=== PATIENT | female | born 1940 | race Two or more races ===

== ENCOUNTER 2025-04-13 12:58 | Emergency (ER) | payer OTHER ==
[~2025-04-13] VITALS: Ht 327.7 cm; Wt 72.0 kg
--- NOTE | 2025-04-13 13:34 | ED.PDOC ---
HPI Comments 85 y.o female with PMHx of COPD, HTN, hyperlipidemia, breast cancer and gallstones, presents to the ED for a chief complaint of palpitations associated with SOB that started last night. Patient reports SOB worsens on exertion. Daughter reports patient is on 4 liters of oxygen at home and noticed no relief. Patient recently moved from [place] to [place] 2 weeks ago to live with daughter. Patient denies any chest pain, fever, chills, leg swelling, back pain nausea or vomiting. Patient denies substance, alcohol or tobacco use. Chief Complaint: Palpitations Time Seen by MD: 13:11 Primary Care Provider: RAUL Reviewed Notes: Nurses Notes, Medications, Allergies Allergies: Coded Allergies: NO KNOWN ALLERGIES (Unverified , 04/13/25) Information Source: Patient, Relative (daughter ) Mode of Arrival: Wheelchair Severity: Moderate Timing: Hours Duration: Since onset Onset: At Rest Cardiac Risk Factors: Family History, Hyperlipidemia, HTN PE Risk Factors: None History of: None Modifying Factors: Nothing Associated Signs and Symptoms: SOB, Palpitations Past Medical History PAST MEDICAL HISTORY: Cancer (breast ), COPD, Gallstones, High Lipids, HTN Surgical History: CABG Surgical History (Other): right sided lumpectomy BIOCHEMICAL DEVELOPMENT ENGINEER History: No Pertinent BIOCHEMICAL DEVELOPMENT ENGINEER History Family History Family History: Family hx of heart sofia Social History Smoker: Non-Smoker Alcohol: Denies ETOH Use Drugs: Denies Drug Use Lives In: Home Constitutional: denies: chills, diaphoresis, fatigue, fever, malaise, sweats, weakness, others EENTM: denies: blurred vision, double vision, ear bleeding, ear discharge, ear drainage, ear pain, ear ringing, eye pain, eye redness, hearing loss, mouth pain, mouth swelling, nasal discharge, nose bleeding, nose congestion, nose pain, photophobia, tearing, throat pain, throat swelling, voice changes, others Respiratory: reports: SOB at rest, shortness of breath, SOB with excertion; denies: cough, hemoptysis, orthopnea, stridor, wheezing, others Cardiovascular: reports: palpitations; denies: chest pain, dizzy spells, diaphoresis, Dyspnea on exertion, edema, irregular heart beat, left arm pain, lightheadedness, PND, syncope, others Gastrointestinal: denies: abdomen distended, abdominal pain, blood streaked bowels, constipated, diarrhea, dysphagia, difficulty swallowing, hematemesis, melena, nausea, poor appetite, poor fluid intake, rectal bleeding, rectal pain, vomiting, others Genitourinary: denies: abnormal vagina bleeding, burning, dyspareunia, dysuria, flank pain, frequency, hematuria, incontinence, pain, , vagina discharge, urgency, others Neurological: denies: dizziness, fainting, headache, left sided numbness, left sided weakness, numbness, paresthesia, pre-existing deficit, right sided numb ness, right sided weakness, seizure, speech problems, tingling, tremors, weakness, others Musculoskeletal: denies: back pain, gout, joint pain, joint swelling, muscle pain, muscle stiffness, neck pain, others Integumetry: denies: bruises, change in color, change in hair/nails, dryness, laceration, lesions, lumps, rash, wounds, others Allergic/Immunocompromised: denies: Difficulty Healing, Frequent Infections, Hives, Itching, others Hematologic/Lymphatic: denies: anemia, blood clots, easy bleeding, easy bruising, swollen glands, others Endocrine: denies: excessive hunger, excessive sweating, excessive thirst, excessive urination, flushing, intolerance to cold, intolerance to heat, unexplained weight gain, unexplained weight loss, others Psychiatric: denies: anxiety, bipolar disorder, depression, hopeless, panic disorder, schizophrenia, sleepless, suicidal, others All Other Systems: Reviewed and Negative Physical Exam General Appearance: Moderate Distress HEENT: Normal ENT Inspection, Pharynx Normal, TMs Normal Neck: Full Range of Motion, Non-Tender, Normal, Normal Inspection Respiratory: Chest Non-Tender, Decreased Breath Sounds, No Accessory Muscle Use, Respiratory Distress, Wheezing Cardiovascular: Irregular, No Edema, No JVD, No Murmur, No Gallop Breast Exam: Deferred Gastrointestinal: No Organomegaly, Non Tender, No Pulsatile Mass, Normal Bowel Sounds, Soft Genitalia: Deferred Pelvic: Deferred Rectal: Deferred Extremities: No calf tenderness, Normal capillary refill, No pedal edema Musculoskeletal : Apperance: Normal Neurologic: Alert, airline mechanic II-XII nml as Tested, Motor Weakness, Normal Affect, Normal Mood, No Sensory Deficits Cerebellar Function: Normal Reflexes: Normal Skin: Dry, Normal Color, Warm Lymphatic: No Adenopathy EKG EKG : Pulse Rate (adult): 103 Cardiac Rhythm: Afib Hypertrophy: RVH Was a procedure done? Was a procedure done?: No CP Differential Dx Differential Diagnosis: A-fib, Electrolyte Disorder Differential Diagnosis: Angina X-Ray, Labs, Meds, VS Vital Signs Date Time Temp Pulse Resp B/P (MAP) Pulse Ox O2 Delivery O2 Flow Rate FiO2 04/13/25 15:39 98.2 79 18 102/47 (65) 100 98.2 04/13/25 14:04 95 04/13/25 13:34 103 04/13/25 13:17 97.1 100 18 101/60 (74) 97 97.1 04/13/25 13:06 103 04/13/25 12:58 97.1 100 18 101/60 (74) 97 97.1 Lab Test 04/13/25 14:07 04/13/25 13:10 Range/Units Troponin I High Sensitivity 5 4 </=34 ng/L White Blood Count 3.8 L 4.4-10.8 10^3/uL Red Blood Count 2.67 L 4.0-5.20 10^6/uL Hemoglobin 8.2 L 12.2-16.2 g/dL Hematocrit 24.8 L 36.0-46.0 % Mean Corpuscular Volume 92.7 80.0-100.0 fL Mean Corpuscular Hemoglobin 30.7 28.0-32.0 pg Mean Corpuscular Hemoglobin Concent 33.1 32.0-36.0 g/dL Red Cell Distribution Width 13.8 11.8-14.3 % Platelet Count 160 140-450 10^3/uL Mean Platelet Volume 8.1 6.9-10.8 fL Neutrophils (%) (Auto) 63.0 37.0-80.0 % Lymphocytes (%) (Auto) 19.2 10.0-50.0 % Monocytes (%) (Auto) 13.6 H 0.0-12.0 % Eosinophils (%) (Auto) 3.8 0.0-7.0 % Basophils (%) (Auto) 0.4 0.0-2.0 % Neutrophils # (Auto) 2.4 1.6-8.6 10 ^3/uL Lymphocytes # (Auto) 0.7 0.4-5.4 10 ^3/uL Monocytes # (Auto) 0.5 0-1.3 10 ^3/uL Eosinophils # (Auto) 0.1 0-0.8 10 ^3/uL Basophils # (Auto) 0 0-0.2 10 ^3/uL Nucleated Red Blood Cells 0.0 % D-Dimer, Quantitative 0.91 H 0.0-0.49 mg/L FEU Sodium Level 141 136-145 mmol/L Potassium Level 4.4 3.5-5.1 mmol/L Chloride Level 103 98-107 mmol/L Carbon Dioxide Level 32 H 20-31 mmol/L Anion Gap 6 5-15 Blood Urea Nitrogen 24 H 9-23 mg/dL Creatinine 1.02 0.550-1.02 mg/dL Glomerular Filtration Rate Calc 54 >90 mL/min BUN/Creatinine Ratio 23.5 H 10.0-20.0 Serum Glucose 112 H 74-106 mg/dL Calcium Level 10.3 8.7-10.4 mg/dL B-Type Natriuretic Peptide 141.28 0-100 pg/mL Current Medications Medications (Trade) Dose Ordered Sig/Christiano Route Start Time Stop Time Status Last Admin Methylprednisolone Sodium Succinate (Solu Medrol) 125 mg ONCE ONCE IV 04/13/25 13:30 04/13/25 13:31 DC 04/13/25 15:55 IV Hep-Lock was established The patient was immediately given Solu-Medrol 125 mg IV push The CBC shows anemia with a hemoglobin of 8.2 and hematocrit of 24.8. The patient's chemistry panel is within normal limits The D-dimer is 0.91 which is also elevated. The chest x-ray did not show any acute disease as in pneumothorax or infiltrates consistent with pneumonia or CHF We did order a CAT scan of the chest to rule out PE at this time It seems that the patient does not want to stay and would like to leave because she states that she is feeling better She is signing out against medical advice. Images Reviewed?: Images reviewed and evaluated by me Time of 1ST Reevaluation: 13:29 Reevaluation 1ST: Unchanged Patient Education/Counseling: Diagnosis, Treatment, Prognosis Family Education/Counseling: Diagnosis, Treatment, Prognosis Departure 1 Departure Time of Disposition: 16:51 Impression: Primary Impression: COPD (chronic obstructive pulmonary disease) Qualified Codes: J44.1 - Chronic obstructive pulmonary disease with (acute) exacerbation Additional Impression: Atrial fibrillation Qualified Codes: I48.91 - Unspecified atrial fibrillation Disposition: 09 ADMITTED INPATIENT Admit to: Tele Condition: Fair Critical Care Note Critical Care Time?: Yes (45 min-critical care time only) Stability Stability form required: Yes Unstable for transfer: Telemetry monitoring (Telemetry monitoring required), ED Physician Assesment (Clinical assesment) Heart Score Heart Score: Heart Score Response (Comments) Value History Slightly Suspicious 0 EKG Repolarization Disturb 1 Age >65 2 Risk Factors >3 or Hx ASHD 2 Troponin Normal limit 0 Total 5 I personally scribed for MARINA COCHRAN MD ([email or web address]) on 04/13/25 at 13:34. Electronically submitted by Martha Chun ([facility]). MARINA COCHRAN MD April 13, 2025 13:34
[2025-04-13 13:54] LABS: Basophils # (auto) 0 10 ^3/uL (0-0.2); Basophils % (auto) 0.4 % (0.0-2.0); Eosinophils # (auto) 0.1 10 ^3/uL (0-0.8); Eosinophils % (auto) 3.8 % (0.0-7.0); Hematocrit 24.8 % (36.0-46.0); Hemoglobin 8.2 g/dL (12.2-16.2); Lymphocytes # (auto) 0.7 10 ^3/uL (0.4-5.4); Lymphocytes % (auto) 19.2 % (10.0-50.0); Mean Corpuscular Hemoglobin 30.7 pg (28.0-32.0); Mean Corpuscular Hgb Conc. 33.1 g/dL (32.0-36.0); Mean Corpuscular Volume 92.7 fL (80.0-100.0); Monocytes # (auto) 0.5 10 ^3/uL (0-1.3); Monocytes % (auto) 13.6 % (0.0-12.0); Neutrophils # (auto) 2.4 10 ^3/uL (1.6-8.6); Platelet Count (auto) 160 10^3/uL (140-450); Red Blood Cells 2.67 10^6/uL (4.0-5.20); Red Cell Distribution Width 13.8 % (11.8-14.3); White Blood Cell 3.8 10^3/uL (4.4-10.8)
[2025-04-13 14:00] LABS: Chloride 103 mmol/L (98-107); Potassium 4.4 mmol/L (3.5-5.1); Sodium 141 mmol/L (136-145)
--- NOTE | 2025-04-13 14:00 | DVH ---
CHEST RADIOGRAPH Indication: sob Technique: Single frontal view of the chest was obtained COMPARISON: FINDINGS: The cardiac silhouette is severely enlarged. The lungs demonstrate bilateral patchy airspace opacitie s. The pulmonary vasculature is prominent. Moderate right and small left pleural effusions. Aortic a therosclerotic disease. There is no pneumothorax. IMPRESSION: 1. As above
[2025-04-13 14:01] LABS: Anion Gap 6 (5-15)
[2025-04-13 14:02] LABS: Calcium 10.3 mg/dL (8.7-10.4)
--- NOTE | 2025-04-13 14:05 | ECG ---
[facility] Test Date: 2025-04-13 Test Time: 14:04:25 Pat Name: KARLEE LAI Department: ER Room: Gender: F Bias Cutter Helper: MAURICIO : 1940 Requested By: MARINA COCHRAN Order Number: [id number] Reading MD: Sha Solano Measurements Intervals [place] Rate: 95 P: 0 MA: 0 QRS: 152 QRSD: 107 T: 38 QT: 358 QTc: 450 Interpretive Statements Atrial fibrillation Probable right ventricular hypertrophy Baseline wander in lead(s) V2 Electronically Signed On 04-14-2025 12:16:38 PDT by Sha Solano Please click the below link to view image of tracing.
[2025-04-13 14:07] LABS: BUN/Creatinine Ratio 23.5 (10.0-20.0)
[2025-04-13 14:12] LABS: Blood Urea Nitrogen 24 mg/dL (9-23); Carbon Dioxide 32 mmol/L (20-31); Glucose 112 mg/dL (74-106)
[2025-04-13 15:39] VITALS: BP 102/47; PULSE 79; RESP 18; TEMP 98.2; O2SAT 100
[2025-04-13] MEDS: methylPREDNISolone SOD SUCC 125 MG/2 ML VL IV ONE (15:55)
--- NOTE | 2025-04-14 07:25 | ECG ---
[facility] Test Date: 2025-04-13 Test Time: 13:06:32 Pat Name: KARLEE LAI Department: ER Room: Gender: F Coil Winder: GEORGE : 1940 Requested By: MARINA COCHRAN Order Number: [id number] Reading MD: Sha Solano Measurements Intervals [place] Rate: 103 P: 0 SC: 0 QRS: 162 QRSD: 104 T: 45 QT: 351 QTc: 460 Interpretive Statements Atrial fibrillation Right ventricular hypertrophy Electronically Signed On 04-14-2025 12:16:29 PDT by Sha Solano Please click the below link to view image of tracing.
== END 2025-04-13 16:53 | disposition left against medical advice (07) ==
LOC: ER 12:58
DX: J44.9 Chronic obstructive pulmonary disease, unspecified (principal); I48.91 Unspecified atrial fibrillation; I10 Essential (primary) hypertension; E78.5 Hyperlipidemia, unspecified; Z95.1 Presence of aortocoronary bypass graft; Z98.890 Other specified postprocedural states
CPT/HCPCS: 36415; 71045; 80048; 83880; 84484; 85025; 85379; 93005; 96374; 99291; J2919

== ENCOUNTER 2025-04-27 19:34 | Inpatient (IN) | payer OTHER ==
[~2025-04-27] VITALS: Ht 188 cm; Wt 73.3 kg
[2025-04-27 20:05] LABS: Basophils # (auto) 0 10 ^3/uL (0-0.2); Basophils % (auto) 0.5 % (0.0-2.0); Eosinophils # (auto) 0.1 10 ^3/uL (0-0.8); Eosinophils % (auto) 1.9 % (0.0-7.0); Hematocrit 25.1 % (36.0-46.0); Hemoglobin 8.2 g/dL (12.2-16.2); Lymphocytes # (auto) 0.7 10 ^3/uL (0.4-5.4); Lymphocytes % (auto) 13.1 % (10.0-50.0); Mean Corpuscular Hemoglobin 30.6 pg (28.0-32.0); Mean Corpuscular Hgb Conc. 32.5 g/dL (32.0-36.0); Mean Corpuscular Volume 94.1 fL (80.0-100.0); Monocytes # (auto) 0.4 10 ^3/uL (0-1.3); Monocytes % (auto) 8.1 % (0.0-12.0); Neutrophils # (auto) 3.9 10 ^3/uL (1.6-8.6); Neutrophils % (auto) 76.4 % (37.0-80.0); Platelet Count (auto) 139 10^3/uL (140-450); Red Blood Cells 2.67 10^6/uL (4.0-5.20); Red Cell Distribution Width 14.6 % (11.8-14.3); White Blood Cell 5.1 10^3/uL (4.4-10.8)
[2025-04-27 20:18] LABS: Alanine Aminotransferase 21 U/L (7-40); Albumin 4.1 g/dL (3.2-4.8); Alkaline Phosphatase 92 U/L (46-116); Anion Gap 6 (5-15); Aspartate Aminotransferase 23 U/L (13-40); BUN/Creatinine Ratio 17.7 (10.0-20.0); Bilirubin, Total 0.5 mg/dL (0.2-1.0); Blood Urea Nitrogen 20 mg/dL (9-23); Calcium 10.1 mg/dL (8.7-10.4); Carbon Dioxide 30 mmol/L (20-31); Chloride 105 mmol/L (98-107); Potassium 4.7 mmol/L (3.5-5.1); Sodium 141 mmol/L (136-145); Total Protein 6.7 g/dL (5.7-8.2)
[2025-04-27 20:21] LABS: Glucose 220 mg/dL (74-106)
--- NOTE | 2025-04-27 20:25 | ED.PDOC ---
History of Present Illness HPI Comments Patient isn't 85-year-old female in poor overall health who was brought to the facility today via EMS due to abnormal lab concerns. Patient's [facility] is [facility] and [facility] hemoglobin levels were discovered. Patient was sent to our facility for a direct admission. Provider Leonardo Kolb will manage that inpatient care. Chief Complaint: Abnormal LAB's Time Seen by MD: 19:36 Primary Care Provider: RAUL Reviewed Notes: Nurses Notes, Clinical Services Assistant Notes Allergies: Coded Allergies: NO KNOWN ALLERGIES (Unverified , 04/13/25) Information Source: Patient, Emergency Med Personnel Mode of Arrival: EMS Severity: Moderate Timing: Minutes Duration: Since onset Prehospital treatment: 12 Lead EKG Past Medical History PAST MEDICAL HISTORY: Cancer, COPD, Gallstones, High Lipids, HTN Surgical History: CABG AUTOMOBILE LIGHTS ASSEMBLER History: No Pertinent AUTOMOBILE LIGHTS ASSEMBLER History Family History Family History: Family hx of heart sofia Social History Smoker: Non-Smoker Alcohol: Denies ETOH Use Drugs: Denies Drug Use Lives In: Home Constitutional: reports: fatigue; denies: chills, diaphoresis, fever, malaise, sweats, weakness, others EENTM: denies: blurred vision, double vision, ear bleeding, ear discharge, ear drainage, ear pain, ear ringing, eye pain, eye redness, hearing loss, mouth pain, mouth swelling, nasal discharge, nose bleeding, nose congestion, nose pain, photophobia, tearing, throat pain, throat swelling, voice changes, others Respiratory: denies: cough, hemoptysis, orthopnea, SOB at rest, shortness of breath, SOB with excertion, stridor, wheezing, others Cardiovascular: denies: chest pain, dizzy spells, diaphoresis, Dyspnea on exertion, edema, irregular heart beat, left arm pain, lightheadedness, palpitations, PND, syncope, others Gastrointestinal: reports: nausea; denies: abdomen distended, abdominal pain, blood streaked bowels, constipated, diarrhea, dysphagia, difficulty swallowing, hematemesis, melena, poor appetite, poor fluid intake, rectal bleeding, rectal pain, vomiting, others Genitourinary: denies: abnormal vagina bleeding, burning, dyspareunia, dysuria, flank pain, frequency, hematuria, incontinence, pain, , vagina discharge, urgency, others Neurological: denies: dizziness, fainting, headache, left sided numbness, left sided weakness, numbness, paresthesia, pre-existing deficit, right sided n umbness, right sided weakness, seizure, speech problems, tingling, tremors, weakness, others Musculoskeletal: denies: back pain, gout, joint pain, joint swelling, muscle pain, muscle stiffness, neck pain, others Integumetry: denies: bruises, change in color, change in hair/nails, dryness, laceration, lesions, lumps, rash, wounds, others Allergic/Immunocompromised: denies: Difficulty Healing, Frequent Infections, Hives, Itching, others Hematologic/Lymphatic: denies: anemia, blood clots, easy bleeding, easy bruising, swollen glands, others Endocrine: denies: excessive hunger, excessive sweating, excessive thirst, excessive urination, flushing, intolerance to cold, intolerance to heat, unexplained weight gain, unexplained weight loss, others Psychiatric: denies: anxiety, bipolar disorder, depression, hopeless, panic disorder, schizophrenia, sleepless, suicidal, others Physical Exam Exam Comments Patient is in poor overall health. General Appearance: Moderate Distress (Patient was in [id number] discomfort due to some nausea and generalized belly pain concerns.), Normal HEENT: Normal ENT Inspection, Pharynx Normal, TMs Normal Neck: Full Range of Motion, Non-Tender, Normal, Normal Inspection Respiratory: Chest Non-Tender, Lungs Clear, No Accessory Muscle Use, No Respiratory Distress, Normal Breath Sounds Cardiovascular: No Edema, No JVD, No Murmur, No Gallop, Normal Peripheral Pulses, Regular Rate/Rhythm Breast Exam: Deferred Gastrointestinal: No Organomegaly, Non Tender, No Pulsatile Mass, Normal Bowel Sounds, Soft Genitalia: Deferred Pelvic: Deferred Rectal: Deferred Extremities: No calf tenderness, Normal capillary refill, No pedal edema Neurologic: Alert Cerebellar Function: NOT DONE Reflexes: NOT DONE Skin: Dry, Normal Color, Warm Lymphatic: No Adenopathy Was a procedure done? Was a procedure done?: No Differential Dx Considerations may include: Sepsis, electrolyte abnormality, anemia, GI bleed X-Ray, Labs, Meds, VS Vital Signs Date Time Temp Pulse Resp B/P (MAP) Pulse Ox O2 Delivery O2 Flow Rate FiO2 04/27/25 19:46 98.3 65 18 110/62 (78) 96 98.3 Lab Test 04/27/25 19:49 Range/Units White Blood Count 5.1 4.4-10.8 10^3/uL Red Blood Count 2.67 L 4.0-5.20 10^6/uL Hemoglobin 8.2 L 12.2-16.2 g/dL Hematocrit 25.1 L 36.0-46.0 % Mean Corpuscular Volume 94.1 80.0-100.0 fL Mean Corpuscular Hemoglobin 30.6 28.0-32.0 pg Mean Corpuscular Hemoglobin Concent 32.5 32.0-36.0 g/dL Red Cell Distribution Width 14.6 H 11.8-14.3 % Platelet Count 139 L 140-450 10^3/uL Mean Platelet Volume 7.9 6.9-10.8 fL Neutrophils (%) (Auto) 76.4 37.0-80.0 % Lymphocytes (%) (Auto) 13.1 10.0-50.0 % Monocytes (%) (Auto) 8.1 0.0-12.0 % Eosinophils (%) (Auto) 1.9 0.0-7.0 % Basophils (%) (Auto) 0.5 0.0-2.0 % Neutrophils # (Auto) 3.9 1.6-8.6 10 ^3/uL Lymphocytes # (Auto) 0.7 0.4-5.4 10 ^3/uL Monocytes # (Auto) 0.4 0-1.3 10 ^3/uL Eosinophils # (Auto) 0.1 0-0.8 10 ^3/uL Basophils # (Auto) 0 0-0.2 10 ^3/uL Nucleated Red Blood Cells 0.0 % Sodium Level 141 136-145 mmol/L Potassium Level 4.7 3.5-5.1 mmol/L Chloride Level 105 98-107 mmol/L Carbon Dioxide Level 30 20-31 mmol/L Anion Gap 6 5-15 Blood Urea Nitrogen 20 9-23 mg/dL Creatinine 1.13 H 0.550-1.02 mg/dL Glomerular Filtration Rate Calc 47 >90 mL/min BUN/Creatinine Ratio 17.7 10.0-20.0 Serum Glucose 220 H 74-106 mg/dL Lactic Acid Level 1.3 0.4-2.0 mmol/L Calcium Level 10.1 8.7-10.4 mg/dL Total Bilirubin 0.5 0.2-1.0 mg/dL Aspartate Amino Transferase (AST) 23 13-40 U/L Alanine Aminotransferase (ALT) 21 7-40 U/L Alkaline Phosphatase 92 46-116 U/L Troponin I High Sensitivity Pending B-Type Natriuretic Peptide 178.62 0-100 pg/mL Total Protein 6.7 5.7-8.2 g/dL Albumin 4.1 3.2-4.8 g/dL Lipase Pending X-Ray, Labs, Meds, VS Comment All studies performed in the ED were evaluated by me personally. Some studies were pending at time of this note. CBC was unremarkable for any critical anemic concerns and need to be addressed at this moment. Provider Leonardo Kolb will manage the patient's moving forward. Time of 1ST Reevaluation: 20:32 Reevaluation 1ST: Unchanged Consultation: PCP Patient Education/Counseling: Diagnosis, Treatment Family Education/Counseling: Diagnosis, Treatment Sepsis Sepsis Reasesment Focused Exam Orders: Laboratory Tests 04/27/25 19:49: Lactic Acid Level 1.3 Departure 1 Departure Time of Disposition: 20:33 Impression: Primary Impression: Anemia Additional Impression: Afib Disposition: ADMITTED INPATIENT Condition: Fair Discharged With: Self Critical Care Note Critical Care Time?: No Stability Stability form required: No Heart Score Heart Score: Heart Score Response (Comments) Value History Slightly Suspicious 0 EKG Repolarization Disturb 1 Age >65 2 Risk Factors 1 or 2 risk factors 1 Troponin N/A 0 Total 4 TIMOTHY LILLY PAC Apr 27, 2025 20:25
[2025-04-27 20:31] LABS: Lipase 33 U/L (12-53)
[2025-04-27] MEDS ORDERED: NITROGLYCERIN 0.4 MG SL TAB SL PRN (22:15)
[2025-04-27] MEDS ORDERED: HYDROcodone-ACET 5/325MG TAB PO PRN (22:15)
[2025-04-27] MEDS ORDERED: DEXTROSE (50%) 50ML SYRG IV PRN (22:15)
[2025-04-27] MEDS ORDERED: MORPHINE SULFATE INJ 2 MG/ml SYRG IV PRN (22:15)
[2025-04-27] MEDS ORDERED: ONDANSETRON HCL 4 MG/2 ML VIAL IV PRN (22:15)
[2025-04-27] MEDS ORDERED: ACETAMINOPHEN 325 MG TAB PO PRN (22:15)
[2025-04-27] MEDS ORDERED: DOCUSATE SOD 100 MG CAP PO PRN (22:15)
[2025-04-27 23:56] VITALS: BP 104/50; PULSE 70; RESP 16; TEMP 97.9; O2SAT 99
[2025-04-28] VITALS (12 sets, daily range): BP systolic 96–118; BP diastolic 54–67; PULSE 55–97; RESP 16–18; TEMP 96–98.7; O2SAT 93–100
[2025-04-28] MEDS: ACCU-CHEK COMFORT CURVE STRIP VI SCH (00:53)
[2025-04-28] MEDS: InsuLIN REG 1unit/0.01ml Soln (100units/ml) SC SCH (00:53)
--- NOTE | 2025-04-28 02:00 | DVHHP2 ---
ZOE BURT CLOTHING SORTER 04/28/25 0200: History of Present Illness Reason for Visit: Abnormal labs History of Present Illness 85-year-old female sent in from [facility] urgent care for abnormal labs. While at urgent care patient was found to have a hemoglobin level 7.6. Patient was recently transitioned to Eliquis from Coumadin for her AFib. Patient is endorsing black stool. Denies use of NSAID or alcohol use. At this time patient states she would consider blood transfusions, but if needed is refusing at this time. There are no complaints of fevers, chills, dizziness, worsening shortness of breath, chest pain, palpitation, abdominal pain, nausea, vomiting. Cardiovascular: AFIB, HTN Pulmonary: COPD Review of Systems Constitutional: Yes: Other; No: Fever, Chills, Sweats, Weakness, Malaise Eyes: No: Pain, Vision change, Conjunctivae inflammation, Eyelid inflammation, Other, Redness ENT: No: Ear pain, Ear discharge, Nose pain, Nose discharge, Nose congestion, Mouth pain, Mouth swelling, Throat pain, Throat swelling, Other Respiratory: No: Cough, Dry, Shortness of breath, SOB with excertion, Wheezing, Hemoptysis, Pleuritic Pain, Sputum, Wheezing, Other Cardiovascular: No: Chest Pain, Palpitations, Orthopnea, Paroxysmal Noc. Dyspnea, Edema, Lt Headedness, Other Gastrointestinal: Melena; No: Nausea, Vomiting, Abdominal Pain, Diarrhea, Constipation, Hematochezia, Other Genitourinary: No Dysuria, No Frequency, No Incontinence, No Hematuria, No Retention, No Other Musculoskeletal: No: other, neck pain, shoulder pain, arm pain, back pain, hand pain, leg pain, foot pain Skin: No: Rash, Lesions, Jaundice, Bruising, Other Neurological: No: Weakness, Numbness, Incoordination, Change in speech, Confusion, Seizures, Other Allergies: Coded Allergies: NO KNOWN ALLERGIES (Unverified , 04/13/25) Medications Current Medications Medications Dose Ordered Sig/Christiano Route Start Time Stop Time Status Last Admin Dose Admin Docusate Sodium 100 mg BIDPRN PRN PO 04/27/25 22:15 Acetaminophen 650 mg Q6HP PRN PO 04/27/25 22:15 Acetaminophen/ Hydrocodone Bitart 1 tab Q4HP PRN PO 04/27/25 22:15 Ondansetron HCl 4 mg Q4HP PRN IV 04/27/25 22:15 Nitroglycerin 0.4 mg Q5MINP PRN SL 04/27/25 22:15 Morphine Sulfate 2 mg Q30M PRN IV 04/27/25 22:15 Diagnostic Test (Pha) 1 strip Q6HR 04/28/25 00:00 04/28/25 00:53 1 STRIP Insulin Human Regular Q6HR SC 04/28/25 00:00 Dextrose 50 ml UD PRN IV 04/27/25 22:15 Pantoprazole Sodium 40 mg BID IV 04/28/25 10:00 Albuterol 2.5 mg Q4HPRN PRN NEB 04/27/25 22:15 Ipratropium [place] 0.5 mg Q4HPRN PRN NEB 04/27/25 22:15 Exam Vital Signs Vital Signs Date Time Temp Pulse Resp B/P (MAP) Pulse Ox O2 Delivery O2 Flow Rate FiO2 04/28/25 01:00 96.0 65 16 96/55 (69) 100 96.0 04/28/25 00:02 3.0 32 04/27/25 20:45 Nasal Cannula* General Appearance: Alert, Oriented X3, Cooperative, No acute distress HEENT: Atraumatic, PERRLA, EOMI Respiratory: Normal air movement, Other (Diminished air exchange) Cardiovascular: Regular rate, Normal S1, Normal S2 Abdominal: Normal bowel sounds, Soft, No tenderness Skin: No rashes Neuro: Normal speech, Strength at 5/5 X4 ext Psych/Mental Status: Mental status NL, Mood NL Labs/Xrays Labs Test 04/27/25 20:50 04/27/25 19:49 Range/Units Troponin I High Sensitivity 7 </=34 ng/L White Blood Count 5.1 4.4-10.8 10^3/uL Red Blood Count 2.67 L 4.0-5.20 10^6/uL Hemoglobin 8.2 L 12.2-16.2 g/dL Hematocrit 25.1 L 36.0-46.0 % Mean Corpuscular Volume 94.1 80.0-100.0 fL Mean Corpuscular Hemoglobin 30.6 28.0-32.0 pg Mean Corpuscular Hemoglobin Concent 32.5 32.0-36.0 g/dL Red Cell Distribution Width 14.6 H 11.8-14.3 % Platelet Count 139 L 140-450 10^3/uL Mean Platelet Volume 7.9 6.9-10.8 fL Neutrophils (%) (Auto) 76.4 37.0-80.0 % Lymphocytes (%) (Auto) 13.1 10.0-50.0 % Monocytes (%) (Auto) 8.1 0.0-12.0 % Eosinophils (%) (Auto) 1.9 0.0-7.0 % Basophils (%) (Auto) 0.5 0.0-2.0 % Neutrophils # (Auto) 3.9 1.6-8.6 10 ^3/uL Lymphocytes # (Auto) 0.7 0.4-5.4 10 ^3/uL Monocytes # (Auto) 0.4 0-1.3 10 ^3/uL Eosinophils # (Auto) 0.1 0-0.8 10 ^3/uL Basophils # (Auto) 0 0-0.2 10 ^3/uL Nucleated Red Blood Cells 0.0 % Sodium Level 141 136-145 mmol/L Potassium Level 4.7 3.5-5.1 mmol/L Chloride Level 105 98-107 mmol/L Carbon Dioxide Level 30 20-31 mmol/L Anion Gap 6 5-15 Blood Urea Nitrogen 20 9-23 mg/dL Creatinine 1.13 H 0.550-1.02 mg/dL Glomerular Filtration Rate Calc 47 >90 mL/min BUN/Creatinine Ratio 17.7 10.0-20.0 Serum Glucose 220 H 74-106 mg/dL Lactic Acid Level 1.3 0.4-2.0 mmol/L Calcium Level 10.1 8.7-10.4 mg/dL Total Bilirubin 0.5 0.2-1.0 mg/dL Aspartate Amino Transferase (AST) 23 13-40 U/L Alanine Aminotransferase (ALT) 21 7-40 U/L Alkaline Phosphatase 92 46-116 U/L B-Type Natriuretic Peptide 178.62 0-100 pg/mL Total Protein 6.7 5.7-8.2 g/dL Albumin 4.1 3.2-4.8 g/dL Lipase 33 12-53 U/L Assessment/Plan Assessment/Plan Anemia Rule out GI bleed Melena History of COPD History of AFib Plan Admit telemetry Consult gastroenterology. Occult stool. IV Protonix. Clear liquid diet. Monitor H&H q.6 hours. At this time patient refusing transfusion of PRBCs, but will reconsider if needed. Bronchodilators. As needed supplemental O2 to maintain oxygen saturation greater than 93%. Continue home medications. Hold eliquis. GI PPX Protonix / DVT PPX SCDs Plan discussed with: Patient My Orders Orders - ZOE BURT NP Procedure Category Date Status Time Admit ADMIT 04/27/25 Transmitted 22:04 Code Status CODE 04/27/25 Transmitted 22:04 Vital Signs BELEN 04/27/25 In Process 22:04 Review Orders With BELEN 04/27/25 In Process Adm. 22:04 Encourage Activity As BELEN 04/27/25 In Process Tolerate 22:04 Oxygen By Face Mask RT 04/27/25 Transmitted 22:04 Docusate Sodium PHA 04/27/25 In Process Capsule (Colace 22:15 Acetaminophen Tablet PHA 04/27/25 In Process (Tylenol Tablet) 22:15 Notify Of Changes BELEN 04/27/25 In Process From Base 22:04 Advance Directive BELEN 04/27/25 In Process 22:04 Basic Metabolic Panel LAB 04/28/25 Logged 05:00 Basic Metabolic Panel LAB 04/29/25 Verified 05:00 Basic Metabolic Panel LAB 04/30/25 Verified 05:00 Basic Metabolic Panel LAB 05/01/25 Verified 05:00 Complete Blood Count LAB 04/28/25 Logged 05:00 Complete Blood Count LAB 04/29/25 Verified 05:00 Complete Blood Count LAB 04/30/25 Verified 05:00 Complete Blood Count LAB 05/01/25 Verified 05:00 Patient Condition ORDERS 04/27/25 Transmitted 22:04 Allergies BELEN 04/27/25 In Process 22:04 Hydrocodone-Acet PHA 04/27/25 In Process 5/325mg Tab ([place] 22:15 Ondansetron Hcl PHA 04/27/25 In Process (Zofran) 22:15 Sequential BELEN 04/27/25 In Process Compression Device Nitroglycerin PHA 04/27/25 In Process Sublingual (Ntrostat 22:15 Morphine Sulfate PHA 04/27/25 In Process Injection 22:15 Stat Ekg For Chest BELEN 04/27/25 In Process Pain 22:04 Notify Of Changes BELEN 04/27/25 In Process From Base 22:04 Customer Account Representative For BELEN 04/27/25 In Process 24 Hours 22:04 Emergency Dysrhythmia BELEN 04/27/25 In Process Protocol 22:04 Rhythm Strips Once BELEN 04/27/25 In Process Every Shift 22:04 Oxygen By Nasal RT 04/27/25 Transmitted Cannula 22:04 Glucose Blood PHA 04/28/25 In Process (Accu-Chek Comfort 00:00 Insulin R (Human) PHA 04/28/25 In Process (Insulin R) 00:00 Dextrose 50% Syringe PHA 04/27/25 In Process 22:15 *[facility] CONS 04/27/25 Transmitted 22:04 Stool Occult Blood LAB 04/27/25 Logged 22:04 Hemoglobin & LAB 04/28/25 Logged Hematocrit 12:00 Hemoglobin & LAB 04/28/25 Logged Hematocrit 18:00 Hemoglobin & LAB 04/29/25 Verified Hematocrit 00:00 Hemoglobin & LAB 04/29/25 Verified Hematocrit 06:00 Clear Liq Diet DIET 04/28/25 Transmitted Breakfast Pantoprazole PHA 04/28/25 In Process (Protonix) 10:00 Albuterol Medneb PHA 04/27/25 In Process (Ventolin Medneb) 22:15 Ipratropium Medneb PHA 04/27/25 In Process (Atrovent Medneb) 22:15 Date of Service: Apr 28, 2025 Billing Provider: SHELTON FELIZ MD Common Visit Codes: NOT BILLABLE SHELTON FELIZ MD 04/28/25 1706: Review of Systems Allergies: Coded Allergies: NO KNOWN ALLERGIES (Unverified , 04/13/25) ZOE BURT NP Apr 28, 2025 02:00 SHELTON FELIZ MD Apr 28, 2025 17:06
[2025-04-28] MEDS ORDERED: SPIR25TA8 PO (02:23)
[2025-04-28] MEDS ORDERED: HYDR-4611 (02:23)
[2025-04-28] MEDS ORDERED: FURO20TA4 PO (02:23)
[2025-04-28] MEDS ORDERED: ATEN25TA PO (02:23)
[2025-04-28] MEDS ORDERED: LIDO1PAD55 TOP (02:23)
[2025-04-28] MEDS ORDERED: EXEM25TA4 PO (02:23)
[2025-04-28] MEDS ORDERED: ATOR40TA52 PO (02:23)
[2025-04-28] MEDS ORDERED: APIX2.5T PO (02:23)
[2025-04-28 06:09] LABS: Urine Bacteria FEW /hpf (None Seen); Urine Blood Negative /uL (Negative); Urine Clarity Turbid (Clear); Urine Color Yellow (Yellow); Urine Protein, UAD Negative (Negative); Urine Specific Gravity 1.022 (1.001-1.035); Urine Squamous Epithelial Cell FEW /hpf (<5); Urine Urobilinogen Normal (Negative); Urine WBC 10 /HPF (0-5); Urine pH 5.5 (5.0-9.0)
[2025-04-28 07:52] LABS: Basophils # (auto) 0 10 ^3/uL (0-0.2); Eosinophils # (auto) 0.1 10 ^3/uL (0-0.8); Hematocrit 21.9 % (36.0-46.0); Hemoglobin 7.3 g/dL (12.2-16.2); Lymphocytes # (auto) 0.7 10 ^3/uL (0.4-5.4); Red Blood Cells 2.37 10^6/uL (4.0-5.20); White Blood Cell 4.4 10^3/uL (4.4-10.8)
[2025-04-28 07:54] LABS: Basophils % (auto) 0.2 % (0.0-2.0); Lymphocytes % (auto) 14.9 % (10.0-50.0); Mean Corpuscular Hemoglobin 30.8 pg (28.0-32.0); Mean Corpuscular Hgb Conc. 33.3 g/dL (32.0-36.0); Mean Corpuscular Volume 92.5 fL (80.0-100.0); Monocytes # (auto) 0.5 10 ^3/uL (0-1.3); Monocytes % (auto) 11.8 % (0.0-12.0); Neutrophils # (auto) 3.1 10 ^3/uL (1.6-8.6); Neutrophils % (auto) 70.1 % (37.0-80.0); Nucleated Red Blood Cells % 0.1 %; Platelet Count (auto) 129 10^3/uL (140-450); Red Cell Distribution Width 14.5 % (11.8-14.3)
[2025-04-28 08:05] LABS: Anion Gap 6 (5-15); Carbon Dioxide 31 mmol/L (20-31); Chloride 106 mmol/L (98-107); Potassium 4.5 mmol/L (3.5-5.1); Sodium 143 mmol/L (136-145)
[2025-04-28 08:06] LABS: Calcium 9.9 mg/dL (8.7-10.4)
[2025-04-28 08:11] LABS: BUN/Creatinine Ratio 20.2 (10.0-20.0); Blood Urea Nitrogen 19 mg/dL (9-23); Glucose 85 mg/dL (74-106)
[2025-04-28] MEDS: PANTOPRAZOLE 40 MG/10 ML VIAL INJ IV SCH (10:21)
--- NOTE | 2025-04-28 11:38 | DVH ---
INDICATION: hypoxia TECHNIQUE: Frontal view of the chest. COMPARISON: XY CHEST PORTABLE on DOS: 04/13/25 FINDINGS: Cardiomegaly.. Small right pleural effusion. The lungs are clear. The bony structures of the ches t are intact without fracture. IMPRESSION: 1. Cardiomegaly with CHF. Small right pleural effusion.
[2025-04-28 13:21] LABS: Hematocrit 23.9 % (36.0-46.0); Hemoglobin 7.9 g/dL (12.2-16.2)
[2025-04-28 17:42] LABS: Hemoglobin 7.5 g/dL (12.2-16.2)
[2025-04-28 17:44] LABS: Hematocrit 22.5 % (36.0-46.0)
[2025-04-28 18:54] LABS: INR 1.13 (0.9-1.15); Partial Thromboplastin Time 27.4 SEC (24.5-34.5); Prothrombin Time 11.8 sec (9.3-11.8)
[2025-04-28] MEDS: ALBUTEROL SULF 2.5 MG/0.5ML(0.5%) NEB SOLN NEB PRN (19:10)
[2025-04-28] MEDS: IPRATROPIUM BROM 0.5 MG/2.5ML INH SOL NEB PRN (19:10)
--- NOTE | 2025-04-28 19:28 | CONS ---
Pharmacy Clinical Information: START NEW HEPARIN RATE @900 UNITS/HR OR 9ML/HR AND NO BOLUS PER RX PROTOCOL. DR FELIZ AWARE PT HAS BLOODY STOOL, BUT HE WANTS PATIENT TO STILL START ON HEPARIN (MONITOR HEMOGLOBIN Q6H AND NURSE AWARE TO MONITOR S/SX BLEEDING). NEXT APTT MARGARITA 6 HOURS FROM STARTING NEW HEPARIN DRIP TODAY 04/28. ORDER REPEATED BACK BY BLU BAUTISTA OF STARTING DRIP 9ML/HR REMI MAHER PHARMACIST Apr 28, 2025 19:27
[2025-04-28] MEDS: HEPARIN DRIP/D5W 100UNITS/ML 250 ML IV SCH (21:06)
[2025-04-29] VITALS (10 sets, daily range): BP systolic 103–134; BP diastolic 54–83; PULSE 76–98; RESP 16–20; TEMP 97.7–98.7; O2SAT 94–99
[2025-04-29 00:37] LABS: Hematocrit 21.6 % (36.0-46.0); Hemoglobin 7.1 g/dL (12.2-16.2)
[2025-04-29 03:04] LABS: Basophils # (auto) 0 10 ^3/uL (0-0.2); Eosinophils # (auto) 0.1 10 ^3/uL (0-0.8); Eosinophils % (auto) 2.7 % (0.0-7.0); Lymphocytes # (auto) 0.8 10 ^3/uL (0.4-5.4); Monocytes # (auto) 0.5 10 ^3/uL (0-1.3); Neutrophils # (auto) 2.3 10 ^3/uL (1.6-8.6)
[2025-04-29 03:06] LABS: Basophils % (auto) 0.6 % (0.0-2.0); Hematocrit 22.4 % (36.0-46.0); Hemoglobin 7.4 g/dL (12.2-16.2); Lymphocytes % (auto) 22.7 % (10.0-50.0); Mean Corpuscular Hgb Conc. 33.2 g/dL (32.0-36.0); Mean Corpuscular Volume 93.5 fL (80.0-100.0); Nucleated Red Blood Cells % 0.1 %; Platelet Count (auto) 126 10^3/uL (140-450); Red Blood Cells 2.39 10^6/uL (4.0-5.20); Red Cell Distribution Width 14.3 % (11.8-14.3); White Blood Cell 3.7 10^3/uL (4.4-10.8)
[2025-04-29 03:18] LABS: Chloride 105 mmol/L (98-107); Potassium 4.6 mmol/L (3.5-5.1); Sodium 142 mmol/L (136-145)
[2025-04-29 03:19] LABS: Anion Gap 5 (5-15); Calcium 9.7 mg/dL (8.7-10.4)
[2025-04-29 03:24] LABS: BUN/Creatinine Ratio 15.4 (10.0-20.0); Blood Urea Nitrogen 14 mg/dL (9-23); Glucose 89 mg/dL (74-106)
[2025-04-29 03:56] LABS: Carbon Dioxide 32 mmol/L (20-31)
[2025-04-29] MEDS: HEPARIN DRIP/D5W 100UNITS/ML 250 ML IV SCH (04:15)
[2025-04-29 09:43] LABS: INR 1.13 (0.9-1.15); Prothrombin Time 11.8 sec (9.3-11.8)
[2025-04-29 09:47] LABS: Partial Thromboplastin Time 102.5 SEC (24.5-34.5)
--- NOTE | 2025-04-29 09:52 | DVHINCON2 ---
GI Consult Consult Note Date of Consultation: 04/29/25 Chief Complaint: shortness of breath Referring Physician: Dr. 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 Patient denies having melena but states the color appears darker than usual. Denies NSAID use or ever having an EGD/Colonoscopy before. Currently requiring 3-4 liters of oxygen. 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 Family History: noncontributory. Review of Systems: Constitutional: no fever, chill, weight loss HEENT: no eye pain, no hearing loss, no oral lesion, no scleral icterus Heart: no chest pain, no chest pressure Lung: no cough, +shortness of breath Abdomen: see HPI : no pain with urination, normal appearing urine Musculoskeletal: no joint pain, no muscle pain Neurological: no seizure, no loss of sensation, no weakness in extremities Pysch: no depression, no anxiety Derm: no rash, no jaundice Physical exam: General: NAD, AAOX3 HEENT: no scleral icterus, normal hearing, gums without lesions or bleeding, oropharynx clear without erythema or exudate. Neck: Supple without enlargement of the thyroid, or lymphadenopathy. Chest: No respiratory distress, nonlabored breathing. on 3L nasal cannula Heart: Irregular pulse and rate. Abdomen: non-distended, no tenderness to palpation Skin: No rashes, No jaundice TY: MICHELE Vargas present at bedside. Light brown stool. No melena or blood. Labs: Laboratory Tests Test 04/27/25 19:49 04/27/25 20:50 04/28/25 00:51 04/28/25 04:30 Range/Units White Blood Count 5.1 4.4-10.8 10^3/uL Red Blood Count 2.67 L 4.0-5.20 10^6/uL Hemoglobin 8.2 L 12.2-16.2 g/dL Hematocrit 25.1 L 36.0-46.0 % Mean Corpuscular Volume 94.1 80.0-100.0 fL Mean Corpuscular Hemoglobin 30.6 28.0-32.0 pg Mean Corpuscular Hemoglobin Concent 32.5 32.0-36.0 g/dL Red Cell Distribution Width 14.6 H 11.8-14.3 % Platelet Count 139 L 140-450 10^3/uL Mean Platelet Volume 7.9 6.9-10.8 fL Neutrophils (%) (Auto) 76.4 37.0-80.0 % Lymphocytes (%) (Auto) 13.1 10.0-50.0 % Monocytes (%) (Auto) 8.1 0.0-12.0 % Eosinophils (%) (Auto) 1.9 0.0-7.0 % Basophils (%) (Auto) 0.5 0.0-2.0 % Neutrophils # (Auto) 3.9 1.6-8.6 10 ^3/uL Lymphocytes # (Auto) 0.7 0.4-5.4 10 ^3/uL Monocytes # (Auto) 0.4 0-1.3 10 ^3/uL Eosinophils # (Auto) 0.1 0-0.8 10 ^3/uL Basophils # (Auto) 0 0-0.2 10 ^3/uL Nucleated Red Blood Cells 0.0 % Sodium Level 141 136-145 mmol/L Potassium Level 4.7 3.5-5.1 mmol/L Chloride Level 105 98-107 mmol/L Carbon Dioxide Level 30 20-31 mmol/L Anion Gap 6 5-15 Blood Urea Nitrogen 20 9-23 mg/dL Creatinine 1.13 H 0.550-1.02 mg/dL Glomerular Filtration Rate Calc 47 >90 mL/min BUN/Creatinine Ratio 17.7 10.0-20.0 Serum Glucose 220 H 74-106 mg/dL Lactic Acid Level 1.3 0.4-2.0 mmol/L Calcium Level 10.1 8.7-10.4 mg/dL Total Bilirubin 0.5 0.2-1.0 mg/dL Aspartate Amino Transferase (AST) 23 13-40 U/L Alanine Aminotransferase (ALT) 21 7-40 U/L Alkaline Phosphatase 92 46-116 U/L Troponin I High Sensitivity 8 7 </=34 ng/L B-Type Natriuretic Peptide 178.62 0-100 pg/mL Total Protein 6.7 5.7-8.2 g/dL Albumin 4.1 3.2-4.8 g/dL Lipase 33 12-53 U/L POC Glucose 129 H 70-106 mg/dl Urine Color Yellow Yellow Urine Clarity Turbid H Clear Urine pH 5.5 5.0-9.0 Urine Specific [place] 1.022 1.001-1.035 Urine Protein Negative Negative Urine Ketones Negative Negative Urine Blood Negative Negative /uL Urine Nitrite Negative Negative Urine Bilirubin Negative Negative Urine Urobilinogen Normal Negative mg/dL Urine Leukocyte Esterase Trace Negative /uL Urine RBC 2 0 - 4 /hpf Urine Microscopic WBC 10 H 0-5 /HPF Urine Squamous Epithelial Cells Few <5 /hpf Urine Bacteria Few H None Seen /hpf Urine Glucose Normal Normal mg/dL Test 04/28/25 05:20 04/28/25 07:16 04/28/25 12:15 04/28/25 12:52 Range/Units POC Glucose 88 81 70-106 mg/dl White Blood Count 4.4 4.4-10.8 10^3/uL Red Blood Count 2.37 L 4.0-5.20 10^6/uL Hemoglobin 7.3 L 7.9 L 12.2-16.2 g/dL Hematocrit 21.9 #L 23.9 L 36.0-46.0 % Mean Corpuscular Volume 92.5 80.0-100.0 fL Mean Corpuscular Hemoglobin 30.8 28.0-32.0 pg Mean Corpuscular Hemoglobin Concent 33.3 32.0-36.0 g/dL Red Cell Distribution Width 14.5 H 11.8-14.3 % Platelet Count 129 L 140-450 10^3/uL Mean Platelet Volume 7.8 6.9-10.8 fL Neutrophils (%) (Auto) 70.1 37.0-80.0 % Lymphocytes (%) (Auto) 14.9 10.0-50.0 % Monocytes (%) (Auto) 11.8 0.0-12.0 % Eosinophils (%) (Auto) 3.0 0.0-7.0 % Basophils (%) (Auto) 0.2 0.0-2.0 % Neutrophils # (Auto) 3.1 1.6-8.6 10 ^3/uL Lymphocytes # (Auto) 0.7 0.4-5.4 10 ^3/uL Monocytes # (Auto) 0.5 0-1.3 10 ^3/uL Eosinophils # (Auto) 0.1 0-0.8 10 ^3/uL Basophils # (Auto) 0 0-0.2 10 ^3/uL Nucleated Red Blood Cells 0.1 % Sodium Level 143 136-145 mmol/L Potassium Level 4.5 3.5-5.1 mmol/L Chloride Level 106 98-107 mmol/L Carbon Dioxide Level 31 20-31 mmol/L Anion Gap 6 5-15 Blood Urea Nitrogen 19 9-23 mg/dL Creatinine 0.94 0.550-1.02 mg/dL Glomerular Filtration Rate Calc 59 >90 mL/min BUN/Creatinine Ratio 20.2 H 10.0-20.0 Serum Glucose 85 74-106 mg/dL Calcium Level 9.9 8.7-10.4 mg/dL Test 04/28/25 13:22 04/28/25 17:25 04/28/25 17:43 04/28/25 23:35 Range/Units Stool Occult Blood Positive Negative Stool Occult Blood Sample #3 Negative Hemoglobin 7.5 L 12.2-16.2 g/dL Hematocrit 22.5 L 36.0-46.0 % Prothrombin Time 11.8 9.3-11.8 sec Prothrombin Time INR 1.13 0.9-1.15 Activated Partial Thromboplast Time 27.4 24.5-34.5 SEC POC Glucose 94 86 70-106 mg/dl Test 04/29/25 00:27 04/29/25 02:54 04/29/25 05:14 04/29/25 08:50 Range/Units Hemoglobin 7.1 L 7.4 L 12.2-16.2 g/dL Hematocrit 21.6 L 22.4 L 36.0-46.0 % White Blood Count 3.7 L 4.4-10.8 10^3/uL Red Blood Count 2.39 L 4.0-5.20 10^6/uL Mean Corpuscular Volume 93.5 80.0-100.0 fL Mean Corpuscular Hemoglobin 31.0 28.0-32.0 pg Mean Corpuscular Hemoglobin Concent 33.2 32.0-36.0 g/dL Red Cell Distribution Width 14.3 11.8-14.3 % Platelet Count 126 L 140-450 10^3/uL Mean Platelet Volume 7.2 6.9-10.8 fL Neutrophils (%) (Auto) 62.0 37.0-80.0 % Lymphocytes (%) (Auto) 22.7 10.0-50.0 % Monocytes (%) (Auto) 12.0 0.0-12.0 % Eosinophils (%) (Auto) 2.7 0.0-7.0 % Basophils (%) (Auto) 0.6 0.0-2.0 % Neutrophils # (Auto) 2.3 1.6-8.6 10 ^3/uL Lymphocytes # (Auto) 0.8 0.4-5.4 10 ^3/uL Monocytes # (Auto) 0.5 0-1.3 10 ^3/uL Eosinophils # (Auto) 0.1 0-0.8 10 ^3/uL Basophils # (Auto) 0 0-0.2 10 ^3/uL Nucleated Red Blood Cells 0.1 % Activated Partial Thromboplast Time 43.7 H Pending Sodium Level 142 136-145 mmol/L Potassium Level 4.6 3.5-5.1 mmol/L Chloride Level 105 98-107 mmol/L Carbon Dioxide Level 32 H 20-31 mmol/L Anion Gap 5 5-15 Blood Urea Nitrogen 14 9-23 mg/dL Creatinine 0.91 0.550-1.02 mg/dL Glomerular Filtration Rate Calc 61 >90 mL/min BUN/Creatinine Ratio 15.4 10.0-20.0 Serum Glucose 89 74-106 mg/dL Calcium Level 9.7 8.7-10.4 mg/dL POC Glucose 88 70-106 mg/dl Prothrombin Time Pending Prothrombin Time INR Pending Vital Signs Date Time Temp Pulse Resp B/P (MAP) Pulse Ox O2 Delivery O2 Flow Rate FiO2 04/29/25 07:34 82 20 99 04/29/25 07:26 Nasal Cannula* 3 32 04/29/25 05:00 98.0 111/57 (75) 98.0 Imaging: Assessment: 85F poor historian but numerous medical comorbidities including CAD, CABG, afib, unclear size and location 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 She is refusing PRBC transfusion because of concernsof contamination of other patients blood. She is not having any witnessed episodes of rectal bleeding. TY today is light brown stool without any sign of melena or h ematochezia. She remains on 3-4L nasal cannula and is a poor historian with regards to her cardiopulmonary history. I discussed cautiously performing EGD and discussed the risks of sedation and the procedure with her. She states she does not want any invasive measures taken right now and prefers medical treatment only. She understands that by not performing EGD we will not defnitiv sarah evaluation for peptic ulcer disease, esophagitis and other etiologies including malignancy. She understands and does not wish to get EGD done. Plan: - Protonix 40mg IV BID - Sucralfate 1g suspension QID - monitor for signs of GI bleeding - I personally recommend transfusing PRBC for hgb goal >8 given her cardiac comoribidties but patient is refusing blood transfusion - Patient can follow up in outpatient clinic within 4 weeks of discharge to further discuss her willingness to get EGD and repeat labs. She should follow up with PCP prior to this. - Please page back with any changes in the clinical course. Date of Service: Apr 29, 2025 Billing Provider: ADELSO LMAB MD Common Visit Codes: [id number] INP/OBS CARE (MOD) ADELSO LAMB MD Apr 29, 2025 09:51
--- NOTE | 2025-04-29 10:15 | CONS ---
Pharmacy Clinical Information: HEPARIN PER PHARMACY PROTOCOL MICHELE HURT HELD HEPARIN @0957 04/29/25 PER RN, WAITING TO HEAR BACK FROM MD IF THEY STILL WANT TO CONTINUE HEPARIN. WILL FOLLOW PHARMACY PROTOCOL UNTIL MD CALLS BACK. PREVIOUS DOSE: 1100 UNITS/HR APTT (@0850): 102.5, HOLD HEPARIN FOR 1 HOUR NEW DOSE: 800 UNITS/HR (TO START @1100) NEXT APTT TO BE DRAWN 6 HOURS FROM WHEN THE NEW DOSE IS STARTED MICHELE HURT AWARE PER RX PROTOCOL GREGORIO SHELDON PHARMACIST Apr 29, 2025 10:15
[2025-04-29] MEDS: OPTISON 3ml Vial for INJ IV ONE (10:56)
--- NOTE | 2025-04-29 12:07 | DVHINCON2 ---
Date of service: Apr 29, 2025 History of Present Illness 85 yo F with hx of MV replacement 6 years ago, severe atrial enlargement, afib chronic on anticoag x 35 years, admitted for GI bleed. pt refused EGD. pt re fused prbcs. Past Medical History reviewed Family History: Cardiovascular disease G8 MOTHER G8 FATHER Allergies: Coded Allergies: NO KNOWN ALLERGIES (Unverified , 04/13/25) Home Meds Reported Medications Hydrocodone-Acetaminophen (Hydrocodone Bitartrate/AC 10-300 mg) 1 Tab Tab 04/28/25 Exemestane (EXEMESTANE) 25 Mg Tab, 1 TAB PO DAILY 04/28/25 Atorvastatin Calcium (ATORVASTATIN CALCIUM) 40 Mg Tab, 1 TAB PO DAILY 04/28/25 Spironolactone (Spironolactone) 25 Mg Tab, 1 TAB PO DAILY 04/28/25 Atenolol (Atenolol) 25 Mg Tab, 1 TAB PO BID 04/28/25 Furosemide (Furosemide) 20 Mg Tab, 1 TAB PO DAILY 04/28/25 Lidocaine (Lidocaine) 5 % Pad, 1 PATCH TOP DAILY 04/28/25 Apixaban Base (ELIQUIS) 2.5 Mg Tab, 1 TAB PO BID 04/28/25 Current Medications Current Medications Medications (Trade) Dose Ordered Sig/Christiano Route PRN Reason Start Time Stop Time Status Last Admin Heparin Sodium/ Dextrose 250 ml @ 9 mls/hr Q24H IV 04/28/25 18:30 04/29/25 04:04 DC 04/28/25 21:06 Heparin Sodium/ Dextrose 250 ml @ 11 mls/hr [id number] IV 04/29/25 04:15 04/29/25 04:15 Apixaban (Eliquis) 2.5 mg BID PO 04/29/25 22:00 UNV Review of Systems 10 pt ros otherwise negative Vital Signs Vital Signs Date Time Temp Pulse Resp B/P (MAP) Pulse Ox O2 Delivery O2 Flow Rate FiO2 04/29/25 08:30 98.1 85 19 134/83 (100) 96 98.1 04/29/25 08:00 Nasal Cannula* 3 32 Physical Exam nad s1 s2 irregular diffuse rhonchi abd soft nt/nd trivial edema Labs/Diagnostic Data Labs Test 04/29/25 11:50 04/29/25 08:50 04/29/25 02:54 04/28/25 13:22 Range/Units POC Glucose 88 70-106 mg/dl Prothrombin Time 11.8 9.3-11.8 sec Prothrombin Time INR 1.13 0.9-1.15 Activated Partial Thromboplast Time 102.5 *H 24.5-34.5 SEC White Blood Count 3.7 L 4.4-10.8 10^3/uL Red Blood Count 2.39 L 4.0-5.20 10^6/uL Hemoglobin 7.4 L 12.2-16.2 g/dL Hematocrit 22.4 L 36.0-46.0 % Mean Corpuscular Volume 93.5 80.0-100.0 fL Mean Corpuscular Hemoglobin 31.0 28.0-32.0 pg Mean Corpuscular Hemoglobin Concent 33.2 32.0-36.0 g/dL Red Cell Distribution Width 14.3 11.8-14.3 % Platelet Count 126 L 140-450 10^3/uL Mean Platelet Volume 7.2 6.9-10.8 fL Neutrophils (%) (Auto) 62.0 37.0-80.0 % Lymphocytes (%) (Auto) 22.7 10.0-50.0 % Monocytes (%) (Auto) 12.0 0.0-12.0 % Eosinophils (%) (Auto) 2.7 0.0-7.0 % Basophils (%) (Auto) 0.6 0.0-2.0 % Neutrophils # (Auto) 2.3 1.6-8.6 10 ^3/uL Lymphocytes # (Auto) 0.8 0.4-5.4 10 ^3/uL Monocytes # (Auto) 0.5 0-1.3 10 ^3/uL Eosinophils # (Auto) 0.1 0-0.8 10 ^3/uL Basophils # (Auto) 0 0-0.2 10 ^3/uL Nucleated Red Blood Cells 0.1 % Sodium Level 142 136-145 mmol/L Potassium Level 4.6 3.5-5.1 mmol/L Chloride Level 105 98-107 mmol/L Carbon Dioxide Level 32 H 20-31 mmol/L Anion Gap 5 5-15 Blood Urea Nitrogen 14 9-23 mg/dL Creatinine 0.91 0.550-1.02 mg/dL Glomerular Filtration Rate Calc 61 >90 mL/min BUN/Creatinine Ratio 15.4 10.0-20.0 Serum Glucose 89 74-106 mg/dL Calcium Level 9.7 8.7-10.4 mg/dL Stool Occult Blood Positive Negative Stool Occult Blood Sample #3 Negative Test 04/28/25 04:30 04/27/25 20:50 04/27/25 19:49 Range/Units Urine Color Yellow Yellow Urine Clarity Turbid H Clear Urine pH 5.5 5.0-9.0 Urine Specific [place] 1.022 1.001-1.035 Urine Protein Negative Negative Urine Ketones Negative Negative Urine Blood Negative Negative /uL Urine Nitrite Negative Negative Urine Bilirubin Negative Negative Urine Urobilinogen Normal Negative mg/dL Urine Leukocyte Esterase Trace Negative /uL Urine RBC 2 0 - 4 /hpf Urine Microscopic WBC 10 H 0-5 /HPF Urine Squamous Epithelial Cells Few <5 /hpf Urine Bacteria Few H None Seen /hpf Urine Glucose Normal Normal mg/dL Troponin I High Sensitivity 7 </=34 ng/L Lactic Acid Level 1.3 0.4-2.0 mmol/L Total Bilirubin 0.5 0.2-1.0 mg/dL Aspartate Amino Transferase (AST) 23 13-40 U/L Alanine Aminotransferase (ALT) 21 7-40 U/L Alkaline Phosphatase 92 46-116 U/L B-Type Natriuretic Peptide 178.62 0-100 pg/mL Total Protein 6.7 5.7-8.2 g/dL Albumin 4.1 3.2-4.8 g/dL Lipase 33 12-53 U/L Assessment r/o gi bleed anemia HTN s/p MV replacement severe atrial enlargement afib chronic Plan/Recommendation hold anticoag fu echo elevated cva risk pt on heparin gtt Fu GI recs concderning anticoag options Plan discussed with: Patient TRUPTI KNIGHT MD Apr 29, 2025 12:07
[2025-04-29] MEDS ORDERED: SUCR1TAB31 OR (16:24)
[2025-04-29] MEDS ORDERED: PANT40TA2 PO (16:24)
--- NOTE | 2025-04-29 16:26 | DVHDS2 ---
Discharge Summary Date of Admission Apr 27, 2025 at 22:04 Date of Discharge: Apr 29, 2025 Labs/Diagnostic Data: Laboratory Results Test 04/29/25 11:50 04/29/25 08:50 04/29/25 02:54 04/28/25 13:22 POC Glucose 88 mg/dl (70-106) Prothrombin Time 11.8 sec (9.3-11.8) Prothrombin Time INR 1.13 (0.9-1.15) Activated Partial Thromboplast Time 102.5 SEC (24.5-34.5) White Blood Count 3.7 10^3/uL (4.4-10.8) Red Blood Count 2.39 10^6/uL (4.0-5.20) Hemoglobin 7.4 g/dL (12.2-16.2) Hematocrit 22.4 % (36.0-46.0) Mean Corpuscular Volume 93.5 fL (80.0-100.0) Mean Corpuscular Hemoglobin 31.0 pg (28.0-32.0) Mean Corpuscular Hemoglobin Concent 33.2 g/dL (32.0-36.0) Red Cell Distribution Width 14.3 % (11.8-14.3) Platelet Count 126 10^3/uL (140-450) Mean Platelet Volume 7.2 fL (6.9-10.8) Neutrophils (%) (Auto) 62.0 % (37.0-80.0) Lymphocytes (%) (Auto) 22.7 % (10.0-50.0) Monocytes (%) (Auto) 12.0 % (0.0-12.0) Eosinophils (%) (Auto) 2.7 % (0.0-7.0) Basophils (%) (Auto) 0.6 % (0.0-2.0) Neutrophils # (Auto) 2.3 10 ^3/uL (1.6-8.6) Lymphocytes # (Auto) 0.8 10 ^3/uL (0.4-5.4) Monocytes # (Auto) 0.5 10 ^3/uL (0-1.3) Eosinophils # (Auto) 0.1 10 ^3/uL (0-0.8) Basophils # (Auto) 0 10 ^3/uL (0-0.2) Nucleated Red Blood Cells 0.1 % Sodium Level 142 mmol/L (136-145) Potassium Level 4.6 mmol/L (3.5-5.1) Chloride Level 105 mmol/L (98-107) Carbon Dioxide Level 32 mmol/L (20-31) Anion Gap 5 (5-15) Blood Urea Nitrogen 14 mg/dL (9-23) Creatinine 0.91 mg/dL (0.550-1.02) Glomerular Filtration Rate Calc 61 mL/min (>90) BUN/Creatinine Ratio 15.4 (10.0-20.0) Serum Glucose 89 mg/dL (74-106) Calcium Level 9.7 mg/dL (8.7-10.4) Stool Occult Blood Positive (Negative) Stool Occult Blood Sample #3 (Negative) Test 04/28/25 04:30 04/27/25 20:50 04/27/25 19:49 Urine Color Yellow (Yellow) Urine Clarity Turbid (Clear) Urine pH 5.5 (5.0-9.0) Urine Specific [place] 1.022 (1.001-1.035) Urine Protein Negative (Negative) Urine Ketones Negative (Negative) Urine Blood Negative /uL (Negative) Urine Nitrite Negative (Negative) Urine Bilirubin Negative (Negative) Urine Urobilinogen Normal mg/dL (Negative) Urine Leukocyte Esterase Trace /uL (Negative) Urine RBC 2 /hpf (0 - 4) Urine Microscopic WBC 10 /HPF (0-5) Urine Squamous Epithelial Cells Few /hpf (<5) Urine Bacteria Few /hpf (None Seen) Urine Glucose Normal mg/dL (Normal) Troponin I High Sensitivity 7 ng/L (</=34) Lactic Acid Level 1.3 mmol/L (0.4-2.0) Total Bilirubin 0.5 mg/dL (0.2-1.0) Aspartate Amino Transferase (AST) 23 U/L (13-40) Alanine Aminotransferase (ALT) 21 U/L (7-40) Alkaline Phosphatase 92 U/L (46-116) B-Type Natriuretic Peptide 178.62 pg/mL (0-100) Total Protein 6.7 g/dL (5.7-8.2) Albumin 4.1 g/dL (3.2-4.8) Lipase 33 U/L (12-53) Other Laboratory Tests 04/29/25 02:54 Brief Hx & Hospital Course: 85-year-old female with a known history of coronary artery disease, aortic valve stenosis status post pig valve replacement, chronic AFib currently on Eliquis presented to the hospital with dark stools found to have acute anemia. Patient was recommended to have EGD. Patient has refused EGD has been as blood transfusion. Patient currently denies any dark stools. Denies any hematemesis or melena. GI recommended Protonix and Carafate. Patient was recommended to return to ER if there is any black stools or any bleeding or any concern. Please follow up with the PCP and GI in 1-2 weeks. May resume Eliquis for primary prevention of stroke but risk of bleeding is there. Patient is currently understand verbalized understanding and agreeable to plan. Condition at Discharge: Stable Final Diagnosis/Problems List 1. Dark stools rule out upper GI bleed, patient refused EGD and blood transfusion 2. Chronic AFib currently on low-dose of Eliquis 3. History of aortic wall stenosis status post PiG valve placement 4. COPD Discharge Disposition: Home with [facility] Discharge Will this Physician continue t: No Discharge Instruct/Medications Diet: Cardiac 2g Na,low cholest Activity: No Restrictions, As Tolerated Follow Up/Referral: Follow up with the PCP in one week Follow up with GI gastro group in 1-2 weeks Medications: Protonix and Carafate as prescribed Discharge Statement: "Patient was advised to return to the ER or call 911 if any headaches, dizziness, shortness of breath, chest pain, abdominal pain, bleeding, fevers, or worsening of medical condition. Patient was counseled about treatment plan, medications, possible side effects, patientverbalized understanding. All questions were answered to the best of my ability. This discharge took greater then 30 minutes in planning, reviewing documentation, counseling the patient, and discussing with other team members." ASSESSMENT ASSESSMENT Assessment 1. Dark stools rule out upper GI bleed, patient refused EGD and blood transfusion 2. Chronic AFib currently on low-dose of Eliquis 3. History of aortic wall stenosis status post PiG valve placement 4. COPD Date of Service: Apr 29, 2025 Billing Provider: SHELTON FELIZ MD Common Visit Codes: NOT BILLABLE SHELTON FELIZ MD Apr 29, 2025 16:26
[2025-04-29] MEDS ORDERED: APIXABAN 2.5 MG TAB PO SCH (22:00)
--- NOTE | 2025-04-30 17:28 | DVHSR ---
APPROVED REPORT EXAM: Two-dimensional and M-mode echocardiogram with Doppler and color Doppler. Blood Pressure: 111/57 mmHg INDICATION EGD RISK FACTORS Height: 6'2", Weight: 161 DIMENSIONS LVDd4.3 (3.8-5.7cm)LA (2D)10.1 (1.9-4.0cm)Aortic Root (2.0-3.7cm) LVDs2.6 (2.5-4.0cm)LA (MM) (1.9-4.0cm)Aortic Cusp Exc (1.5-2.0cm) EF (%) 70.0 (55-70%)Rt. Atrium (1.9-4.0cm)Asc. Aorta cm IVSd1.3 (0.7-1.1cm)RV (D) (1.8-2.4cm) PWd1.6 (0.7-1.1cm) Mitral Valve MitralMitral Stenosis E wave1.07m/sMV Mean GR.6mmHg A wavem/sMV Peak GR.10mmHg E/A ratio0.02D MVAcm2 Aortic Valve Aortic ValveAortic Stenosis V11.14m/Yamini Mean GR.6mmHg V21.63m/Yamini Peak GR.11mmHg LVOT Diameter2.1 (1.8-2.4cm)Doppler AVA2.42cm2 2D AVA1.73cm2 AI P 1/2 [id number] Pulmonic Valve V20.99m/s Tricuspid Valve TR Velocity3.03m/s [id number] Conclusion lvef 50% s/p MV replacement, mean gradient of 6 mmhg massive extreme left atrium enlargement chronic per pt mild aortic regurg rigth atrium enlarged moderate tricuspid regurg
== END 2025-04-29 19:01 | disposition home health service (06) | DRG 378 ==
LOC: ER 19:34 → EDBD 19:34 → OVERFLOW 22:04 → TELE-WESTW 22:59
PROVIDERS: ADMIT Nurse Practitioner Family; ATTEND Nurse Practitioner Family
DX: K92.1 Melena (principal); I48.20 Chronic atrial fibrillation, unspecified; D64.9 Anemia, unspecified; J44.9 Chronic obstructive pulmonary disease, unspecified; I10 Essential (primary) hypertension; K80.20 Calculus of gallbladder without cholecystitis without obstruction; I25.10 Atherosclerotic heart disease of native coronary artery without angina pectoris; I35.0 Nonrheumatic aortic (valve) stenosis; Z95.1 Presence of aortocoronary bypass graft; Z87.891 Personal history of nicotine dependence; Z82.49 Family history of ischemic heart disease and other diseases of the circulatory system; Z79.01 Long term (current) use of anticoagulants; Z79.899 Other long term (current) drug therapy; Z79.891 Long term (current) use of opiate analgesic; Z95.2 Presence of prosthetic heart valve
CPT/HCPCS: 36415; 71045; 80048; 80053; 81001; 82270; 82962; 83605; 83690; 83880; 84484; 85014; 85018; 85025; 85610; 85730; 86850; 86900; 86901; 86920; 93306; 94640; G0378; J2470; Q9956